=== PATIENT | male | born 1975 | race Two or more races ===

== ENCOUNTER 2016-10-05 18:42 | Emergency (ER) | payer BC ==
[2016-10-05 18:57] VITALS: BP 136/90; PULSE 86; TEMP 98.1; BMI 25.0
--- NOTE | 2016-10-05 19:21 | PDOC ---
History of Present Illness - General Chief Complaint: Sore Throat Stated Complaint: SORE THROAT Time Seen by Provider: 10/05/16 19:19 History Source: Patient Exam Limitations: No Limitations - History of Present Illness Initial Comments: 10/05/16 20:02 This is a 41-year-old male who comes in complaining of several weeks of discomfort in his throat. Patient describes the discomfort as a sensation that his throat is very dry. Patient says is worse in the morning. Patient denies any fevers or chills. Patient said that he has been told he has a chronic red throat by his primary care doctor. Patient said that over the last couple a days his throat now is more uncomfortable than usual. Patient denies any fevers or chills. Patient denies any discomfort with swallowing. Patient said it feels like there is something in his throat and he keeps having to clear his throat. Patient does not take any medications specifically no ÁLVARO inhibitor's. Patient denies any shortness of breath, cough, congestion. Patient denies any sinus changes pain. Patient says he does have some mild discharge occasionally in the morning that is clear. PAST MEDICAL HISTORY: no significant history PAST SURGICAL HISTORY: no significant history FAMILY HISTORY: no pertinant history SOCIAL HISTORY: Pt lives with family and is employed. MEDICATIONS: reviewed ALLERGIES: As per nursing notes Review of Systems General: No fevers or chills, no weakness, no weight loss HEENT: No change in vision. No sore throat,. No ear pain CardioVascular: No chest pain or shortness of breath Respiratory:No cough, or wheezing. Gastrointestinal: no nausea, vomitting, diarrhea or constipation, No rectal bleeding Genitourinary: No dysuria, hematuria, or frequency Musculoskeletal: No joint or muscle pain or swelling Neurologic: No headache, vertigo, dizziness or loss of consciousness Psychiatric: nor depression Skin: No rashes or easy bruising Endocrine: no increased thirst or abnormal weight change Allergic: no skin or latex allergy All other systems reviewed and normal Exam: General: Well-nourished well-developed individual, no acute distress HEENT: Throat: There is some mild to moderate erythema of the posterior oropharynx., Tonsils are not enlarged, there is no exudate. Neck: Supple, no meningeal signs, no lymphadenopathy Eyes::Pupils equal reactive and round, extraocular motion intact Chest: Nontender to palpation Cardiac: S1-S2 normal, regular rate and rhythm, no murmurs rubs or gallops Respiratory: Lungs clear to auscultation bilateral Extremities: Warm, dry, no cyanosis, clubbing, or edema Skin: No rashes Neuro: Alert and oriented x3, nonfocal exam, grossly intact, normal gait Psych: Normal mood and affect Assessment and plan: This is a 41-year-old male who comes in complaining of a dry throat with some discomfort of his throat. Patient does have some mild erythema of the posterior oropharynx however no exudate or lymphadenopathy. Patient has no fevers. Patient reassured that his symptoms most likely are secondary to the dry air experienced in Winter as well as a possible superimposed mild viral pharyngitis. Patient was told that he can take Tylenol or Motrin as needed for the discomfort. That he should get a humidifier and use it in his room at night as he is a mouth breather and follow-up with his doctor if not improved in one week. Past History - Past Medical History Allergies/Adverse Reactions: Allergies Allergy/AdvReac Type Severity Reaction Status Date / Time No Known Allergies Allergy Verified 10/05/16 18:47 Home Medications: Ambulatory Orders NK [No Known Home Medication] 10/05/16 Disorders: Yes (renal stones) - Psycho/Social/Smoking Cessation Hx Anxiety: No Suicidal Ideation: No Smoking Status: No Smoking History: Never smoked Have you smoked in the past 12 months: No Number of Cigarettes Smoked Daily: 0 Information on smoking cessation initiated: No Hx Alcohol Use: No Drug/Substance Use Hx: No Substance Use Type: None *Physical Exam - Vital Signs Last Vital Signs Temp Pulse Resp BP Pulse Ox 98.1 F 86 18 136/90 100 10/05/16 18:48 10/05/16 18:48 10/05/16 18:48 10/05/16 18:48 10/05/16 18:48 *DC/Admit/Observation/Transfer Diagnosis at time of Disposition: Acute viral pharyngitis - Discharge Dispostion Disposition: HOME Condition at time of disposition: Good Admit: No - Patient Instructions Printed Discharge Instructions: DI for Viral Pharyngitis Additional Instructions: Use a cool mist humidifier in your room make sure it is on your side of the bed at nighttime when you're sleeping. During the daytime stay well hydrated drink plenty of fluids 6-8 glasses of water a day. Tylenol or Motrin as needed for pain. Return to the emergency department immediately with ANY new, persistent or worsening symptoms. Continue any medications as previously prescribed by your physician. You should follow up with your primary doctor as soon as possible regarding today's emergency department visit. . Please make sure your doctor reviews the results of your emergency evaluation. Thank you for coming to the Emergency Department today for your care. It was a pleasure to see you today. Please note that your evaluation is INCOMPLETE until you follow-up with your doctor.
== END 2016-10-05 19:25 | disposition home or self-care (01) ==
LOC: FER 18:42
DX: J02.8 Acute pharyngitis due to other specified organisms (principal); B97.89 Other viral agents as the cause of diseases classified elsewhere
CPT/HCPCS: 99281-25

== ENCOUNTER 2016-12-06 05:19 | Emergency (ER) | payer BC ==
--- NOTE | 2016-12-06 05:51 | PDOC ---
History of Present Illness - General History Source: Patient Exam Limitations: No Limitations - History of Present Illness Initial Comments: 12/06/16 06:14 The patient is a 41 year old male with no significant past medical history who presents to the ED with 3 days of generalized weakness, nausea, and constipation. Also reports noting a 5lb weight loss within the past month. Visited PMD in [place] where he prescribed escitalopram and was told to come into the ER if symptoms worsened. The patient denies fever, chills, cough, SOB, and chest pain. The patient denies abdominal pain, vomiting, and diarrhea. Allergies: NKDA Social History: No alcohol, tobacco, or drug use reported. Past Surgical History: None reported PCP: Dr. Tere Ontiveros <Theresa Barrera - Last Filed: 12/06/16 06:14> - General History Source: Patient <YefriYannick jenkins - Last Filed: 12/06/16 19:14> - General Stated Complaint: WEAKNESS Time Seen by Provider: 12/06/16 05:50 Past History <Theresa Barrera - Last Filed: 12/06/16 06:14> - Past Medical History Disorders: Yes (renal stones) - Psycho/Social/Smoking Cessation Hx Anxiety: No Suicidal Ideation: No Smoking Status: No Smoking History: Never smoked Have you smoked in the past 12 months: No Number of Cigarettes Smoked Daily: 0 Hx Alcohol Use: No Drug/Substance Use Hx: No Substance Use Type: None <Yannick Merchant - Last Filed: 12/06/16 19:14> - Past Medical History Allergies/Adverse Reactions: Allergies Allergy/AdvReac Type Severity Reaction Status Date / Time No Known Allergies Allergy Verified 12/06/16 06:00 Home Medications: Ambulatory Orders Escitalopram Oxalate [Lexapro -] 10 mg PO DAILY 12/06/16 Review of Systems - Review of Systems Able to Perform ROS?: Yes Comments:: 12/06/16 06:14 CONSTITUTIONAL: +generalized weakness Absent: fever, no chills, no fatigue EYES: Absent: visual changes ENT: Absent: ear pain, no sore throat CARDIOVASCULAR: Absent: chest pain, no palpitations RESPIRATORY: Absent: cough, no SOB GI: +nausea, constipation Absent: abdominal pain, no vomiting, no diarrhea GENITOURINARY: Absent: dysuria, no frequency, no hematuria MUCKULOSKELETAL: Absent: back pain, no arthralgia, no myalgia ENDOCRINE: +5lb weight loss in 1 month SKIN: Absent: rash NEURO: Absent: headache <Theresa Barrera - Last Filed: 12/06/16 06:14> *Physical Exam - Vital Signs Last Vital Signs Temp Pulse Resp BP Pulse Ox 98 F 76 18 132/90 100 12/06/16 05:58 12/06/16 05:58 12/06/16 05:58 12/06/16 05:58 12/06/16 05:58 - Physical Exam Comments: 12/06/16 06:15 GENERAL: Well-appearing, well-nourished. No apparent distress. HEENT: Normocephalic, atraumatic. PERRL, EOM intact. CARDIOVASCULAR: Normal S1, S2. Regular rate and rhythm. PULMONARY: Clear to auscultation bilaterally. ABDOMEN: Soft, non-distended, non-tender. EXTREMITIES: Normal ROM in all four extremities. No gross deformities. SKIN: Warm, dry. No rash NEUROLOGICAL: No focal neurological deficits. <Theresa Barrera - Last Filed: 12/06/16 06:14> ED Treatment Course - LABORATORY CBC & Chemistry Diagram: 12/06/16 07:32 12/06/16 07:32 <Yannick Merchant - Last Filed: 12/06/16 19:14> *DC/Admit/Observation/Transfer - Attestations Scribe Attestion: 12/06/16 06:15 Documentation prepared by Theresa Barrera, acting as medical insurance collector for Yannick Merchant MD <Theresa Barrera - Last Filed: 12/06/16 06:14> - Discharge Dispostion Admit: No <Yannick Merchant - Last Filed: 12/06/16 19:14> Diagnosis at time of Disposition: Malaise - Discharge Dispostion Disposition: HOME Condition at time of disposition: Stable - Referrals Referrals: Jazlyn Ontiveros MD [Primary Care Provider] - - Patient Instructions Printed Discharge Instructions: DI for Fatigue Additional Instructions: Return to the emergency department immediately with ANY new, persistent or worsening symptoms. You MUST call and follow up with your doctor tomorrow for further evaluation of your symptoms. Results were discussed with you. Please make sure your doctor reviews the results of your emergency evaluation. If you had any xrays during your visit, it was read preliminarily by myself, a Radiologist will review it and if there are any additional findings we will call you. Print Language: SERBIAN
[2016-12-06 06:00] VITALS: TEMP 98; BMI 23.8
[2016-12-06] MEDS ORDERED: SODIUM CHLORIDE 1,000 ML IV STA (06:14)
[2016-12-06] MEDS ORDERED: ONDANSETRON 4 MG/2 ML VIAL IVPUSH STA (06:14)
--- NOTE | 2016-12-06 07:09 | PDOC ---
*Physical Exam - Vital Signs Last Vital Signs Temp Pulse Resp BP Pulse Ox 98 F 76 18 132/90 100 12/06/16 05:58 12/06/16 05:58 12/06/16 05:58 12/06/16 05:58 12/06/16 05:58 Heart Score/ECG Review - ECG Impressions Comment:: 12/06/16 11:16 Twelve-lead EKG was performed and reviewed by me. There is normal sinus rhythm with a normal rate. Rate of 72 The axis is normal. The intervals are normal. There is normal R wave progression There are no ST or T wave abnormalities. Impression: Normal twelve-lead EKG ED Treatment Course - LABORATORY CBC & Chemistry Diagram: 12/06/16 07:32 12/06/16 07:32 Medical Decision Making - Medical Decision Making 12/06/16 09:08 The ptient was signed out to me from Dr. Viera The patient is a 41yM presenting with general weakness, constipation, malaise for th epast several days since starting lexapro from his PMD. Pts exam unremarkable. labs unremarkable pt still feeling generally weak.. suspect possible depression? but will hav the pt fu with his PMD tomorrow for reevaluation. reutnr precautions were discusesd I discussed the physical exam findings, ancillary test results and final diagnoses with the patient. I answered all of the patient's questions. The patient was satisfied with the care received and felt comfortable with the discharge plan and treatment plan. The patient will call their primary care physician within 24 hours to arrange follow-up and will return to the Emergency Department with any new, persistent or worsening symptoms. *DC/Admit/Observation/Transfer Diagnosis at time of Disposition: Malaise - Discharge Dispostion Disposition: HOME Condition at time of disposition: Stable Admit: No - Referrals Referrals: Jazlyn Ontiveros MD [Primary Care Provider] - - Patient Instructions Printed Discharge Instructions: DI for Fatigue Additional Instructions: Return to the emergency department immediately with ANY new, persistent or worsening symptoms. You MUST call and follow up with your doctor tomorrow for further evaluation of your symptoms. Results were discussed with you. Please make sure your doctor reviews the results of your emergency evaluation. If you had any xrays during your visit, it was read preliminarily by myself, a Radiologist will review it and if there are any additional findings we will call you. Print Language: SLOVAK - Post Discharge Activity
[2016-12-06] MEDS ORDERED: ONDANSETRON 4 MG/2 ML VIAL ONE (07:18)
[2016-12-06 08:00] LABS: BASOPHIL 0.5 % (0-2.0); EOSINOPHIL 1.1 % (0-4.5); MCH 34.2 pg (25.7-33.7); MCHC 34.3 g/dl (32.0-35.9); MEAN PLT VOLUME 8.3 fl (7.5-11.1); NEUTROPHILS 73.4 % (42.8-82.8); PLATELET COUNT 266 K/MM3 (134-434); RDW 12.8 % (11.9-15.9); WHITE BLOOD COUNT 7.8 K/mm3 (4.0-10.0)
[2016-12-06 08:34] LABS: ANION GAP 9 (8-16); CALCIUM 9.1 mg/dL (8.5-10.1); CO2 30 mmol/L (21-32); GLUCOSE,RANDOM 95 mg/dL (74-106)
[2016-12-06 08:38] LABS: ALK PHOS 58 U/L (45-117); BILIRUBIN,TOTAL 0.7 mg/dL (0.2-1.0); CREATININE 0.8 mg/dL (0.7-1.3); SGOT/AST 21 U/L (15-37); SGPT/ALT 32 U/L (12-78); TOT PROT 6.9 g/dl (6.4-8.2)
[2016-12-06 08:43] LABS: C-REACTIVE PROTEIN < 0.3 MG/DL (0.00-0.3); MAGNESIUM 2.2 mg/dL (1.8-2.4)
[2016-12-06] MEDS ORDERED: FAMOTIDINE 20 MG/50 ML IVPB 20 MG in PREMIX 50 IVPB ONE (09:09)
[2016-12-06] MEDS ORDERED: MAG HYDROX/AL HYDROX/SIMETH 355 ML ORAL.SUSP PO ONE (09:09)
[2016-12-06] MEDS ORDERED: MAG HYDROX/AL HYDROX/SIMETH 30 ML UNIT-DOSE CUP ONE (09:10)
[2016-12-06] MEDS ORDERED: FAMOTIDINE 20 MG/50 ML IVPB 50 ML IVPB ONE (09:11)
[2016-12-06 09:24] LABS: URINE APPEARANCE CLEAR; URINE BILIRUBIN NEGATIVE (NEGATIVE); URINE BLOOD NEGATIVE (NEGATIVE); URINE COLOR COLORLESS; URINE GLUCOSE (UA) NEGATIVE (NEGATIVE); URINE KETONE NEGATIVE (NEGATIVE); URINE LEUK ESTERASE NEGATIVE (NEGATIVE); URINE NITRITE NEGATIVE (NEGATIVE); URINE PROTEIN NEGATIVE (NEGATIVE); URINE UROBILINOGEN NEGATIVE E.U./dl (0.2-1.0)
[2016-12-06 11:40] VITALS: BP 128/85; PULSE 79
--- NOTE | 2016-12-06 12:22 | EKG ---
Test Reason : Blood Pressure : / mmHG Vent. Rate : 072 BPM Atrial Rate : 072 BPM P-R Int : 156 ms QRS Dur : 098 ms QT Int : 386 ms P-R-T Axes : 069 039 038 degrees QTc Int : 422 ms POOR DATA QUALITY, INTERPRETATION MAY BE ADVERSELY AFFECTED NORMAL SINUS RHYTHM NORMAL ECG NO PREVIOUS ECGS AVAILABLE Confirmed by ALINE GRAMAJO MD ([id number]) on 12/06/2016 12:21:50 PM Referred By: Confirmed By:ALINE GRAMAJO MD
== END 2016-12-06 11:39 | disposition home or self-care (01) ==
LOC: JER 05:19
PROC: 3E033GC Introduction of Other Therapeutic Substance into Peripheral Vein, Percutaneous Approach (ICD-10-PCS; principal; 2016-12-06)
DX: R53.81 Other malaise (principal); R63.4 Abnormal weight loss; Z68.23 Body mass index [BMI] 23.0-23.9, adult
CPT/HCPCS: 36415; 80053; 81003; 83735; 85025; 85651; 86140; 93005; 93010; 99285-25

== ENCOUNTER 2016-12-12 10:12 | Emergency (ER) | payer BC ==
[2016-12-12 10:19] VITALS: TEMP 98; BMI 22.6
[2016-12-12] MEDS ORDERED: FAMOTIDINE 20 MG/50 ML IVPB 50 ML IVPB ONE ×2 (12:04→14:04)
--- NOTE | 2016-12-12 12:08 | PDOC ---
History of Present Illness - General Chief Complaint: Pain Stated Complaint: ABD PAIN, VOMITING Time Seen by Provider: 12/12/16 11:58 History Source: Patient Exam Limitations: No Limitations - History of Present Illness Travel History: No Initial Comments: 12/12/16 12:04 41 yr male with c/o weakness, abd pain , heartburn and feeling tired for a few weeks. Pt seen here 2 weeks ago for same. Pt currently taking Lexapro for depression started 2 weeks ago, states it is not helping. Pt is not suicidal. Pt c/o dark colored stool, no active bleeding, c/o constipation. Pt denies any medical history. Pt also with sores to lower lip and right nare started last week. Past History - Past Medical History Allergies/Adverse Reactions: Allergies Allergy/AdvReac Type Severity Reaction Status Date / Time No Known Allergies Allergy Verified 12/12/16 10:19 Home Medications: Ambulatory Orders Escitalopram Oxalate [Lexapro -] 10 mg PO DAILY 12/06/16 Omeprazole 40 mg PO DAILY #30 capsule. 12/12/16 GI Disorders: Yes (GALLSTONES) Disorders: Yes (renal stones) - Immunization History Immunization Up to Date: Yes - Psycho/Social/Smoking Cessation Hx Anxiety: No Suicidal Ideation: No Smoking Status: No Smoking History: Never smoked Have you smoked in the past 12 months: No Number of Cigarettes Smoked Daily: 0 Hx Alcohol Use: No Drug/Substance Use Hx: No Substance Use Type: None *Physical Exam - Vital Signs Last Vital Signs Temp Pulse Resp BP Pulse Ox 98.0 F 91 H 20 122/56 97 12/12/16 10:17 12/12/16 10:17 12/12/16 10:17 12/12/16 10:12/12/16 10:17 - Physical Exam General Appearance: Yes: Nourished, Appropriately Dressed HEENT: positive: EOMI, GÓMEZ, Normal ENT Inspection, TMs Normal, Pharynx Normal. negative: TM Erythema Neck: positive: Supple. negative: Tender Respiratory/Chest: positive: Lungs Clear, Normal Breath Sounds. negative: Chest Tender Cardiovascular: positive: Regular Rhythm, Regular Rate Gastrointestinal/Abdominal: positive: Normal Bowel Sounds, Tender, Soft, Tenderness (epigastric). negative: Guarding, Rebound Male Genitalia: positive: normal genitalia Rectal Exam: positive: heme negative stool, normal exam, normal rectal tone. negative: melena, decreased tone Lymphatic: negative: Adenopathy Musculoskeletal: positive: Normal Inspection, Other Extremity: positive: Normal Capillary Refill, Normal Inspection, Normal Range of Motion. negative: Tender Integumentary: positive: Normal Color, Dry, Warm Neurologic: positive: orthotist prosthetist II-XII NML intact, Fully Oriented, Alert, Normal Mood/ Affect, Normal Response, Motor Strength 01/11 ED Treatment Course - LABORATORY CBC & Chemistry Diagram: 12/12/16 13:49 12/12/16 13:49 Medical Decision Making - Medical Decision Making 12/12/16 15:34 cc: abd pain comes and goes, vomiting on and off with dark colored stools no rectal bleeding no vomiting blood pt denies dizzyness or shortness of breath will check labs, Ct abdomen 12/12/16 15:54 labs reviewed , cat scan done pt stable feels better will dc home pt states he has an apt on 12/28 to have endoscopy. 12/12/16 15:59 *DC/Admit/Observation/Transfer Diagnosis at time of Disposition: Gastritis Qualifiers: Gastritis type: other gastritis Chronicity: acute Gastritis bleeding: without bleeding Qualified Code(s): K29.00 - Acute gastritis without bleeding - Discharge Dispostion Disposition: HOME Condition at time of disposition: Improved - Prescriptions Prescriptions: Omeprazole 40 mg PO DAILY #30 capsule.dr - Referrals Referrals: Diego Gruber MD [Staff Physician] - - Patient Instructions Additional Instructions: bland diet pleanty of clear liquids high fiber diet avoid alcohol, chocoalte , red meat follow with the gastroenterolgist as planned or with Dr. Gruber please bring copies of your tests done today with you for follow up take the medication as prescribed return if any worsening symptoms
[2016-12-12] MEDS ORDERED: METOCLOPRAMIDE HCL INJECTION 10 MG/2 ML VIAL IVPB ONE (13:02)
[2016-12-12] MEDS ORDERED: SODIUM CHLORIDE 1,000 ML IV STA (13:05)
[2016-12-12 13:57] LABS: BASOPHIL 0.7 % (0-2.0); EOSINOPHIL 0.2 % (0-4.5); NEUTROPHILS 71.3 % (42.8-82.8); PLATELET COUNT 292 K/MM3 (134-434); RDW 12.7 % (11.9-15.9); WHITE BLOOD COUNT 7.5 K/mm3 (4.0-10.0)
[2016-12-12] MEDS ORDERED: METOCLOPRAMIDE HCL INJECTION 10 MG/2 ML VIAL ONE (14:03)
[2016-12-12 14:04] LABS: URINE APPEARANCE CLOUDY; URINE BILIRUBIN NEGATIVE (NEGATIVE); URINE BLOOD NEGATIVE (NEGATIVE); URINE COLOR YELLOW; URINE GLUCOSE (UA) NEGATIVE (NEGATIVE); URINE KETONE NEGATIVE (NEGATIVE); URINE LEUK ESTERASE NEGATIVE (NEGATIVE); URINE NITRITE NEGATIVE (NEGATIVE); URINE PROTEIN NEGATIVE (NEGATIVE); URINE UROBILINOGEN NEGATIVE E.U./dl (0.2-1.0)
[2016-12-12 14:34] LABS: ALBUMIN 4.3 g/dl (3.4-5.0); ANION GAP 11 (8-16); CALCIUM 9.6 mg/dL (8.5-10.1); CO2 30 mmol/L (21-32); CREATININE 0.8 mg/dL (0.7-1.3); GLUCOSE,RANDOM 102 mg/dL (74-106); SGOT/AST 28 U/L (15-37); SGPT/ALT 31 U/L (12-78)
[2016-12-12 14:35] LABS: ALK PHOS 61 U/L (45-117); BILIRUBIN,TOTAL 0.8 mg/dL (0.2-1.0); TOT PROT 7.8 g/dl (6.4-8.2)
[2016-12-12 15:09] LABS: HIV 1 & 2 AB NEGATIVE; HIV 1 AGp24 NEGATIVE
[2016-12-12 16:33] VITALS: BP 126/69; PULSE 78
== END 2016-12-12 16:26 | disposition home or self-care (01) ==
LOC: JER 10:12
PROC: 3E033GC Introduction of Other Therapeutic Substance into Peripheral Vein, Percutaneous Approach (ICD-10-PCS; principal; 2016-12-12)
PROC: 3E0337Z Introduction of Electrolytic and Water Balance Substance into Peripheral Vein, Percutaneous Approach (ICD-10-PCS; 2016-12-12)
DX: K29.00 Acute gastritis without bleeding (principal); F32.9 Major depressive disorder, single episode, unspecified
CPT/HCPCS: 36415; 74176-TC; 80053; 81003; 82272; 85025; 86593; 87070; 87389; 87430; 87804; 99283-25

== ENCOUNTER 2017-06-22 19:19 | Emergency (ER) | payer BC, OTHER ==
[2017-06-22 19:25] VITALS: BP 137/87; PULSE 90; TEMP 98.2; BMI 25.8
--- NOTE | 2017-06-22 20:11 | PDOC ---
History of Present Illness - General Chief Complaint: Injury Stated Complaint: FINGER INJURY Time Seen by Provider: 06/22/17 19:54 History Source: Patient Exam Limitations: No Limitations - History of Present Illness Initial Comments: 06/22/17 20:07 41 yr male with injury to left middle finger yesterday dropped an air conditioner on middle digit now has swelling to the tip. no medical history. Occurred: reports: yesterday Upper Extremity Pain Location: left: 3rd finger Method of Injury: reports: other (air conditioner fell on the finger crushed the finger) Past History - Past Medical History Allergies/Adverse Reactions: Allergies Allergy/AdvReac Type Severity Reaction Status Date / Time No Known Allergies Allergy Verified 12/12/16 10:19 Home Medications: Ambulatory Orders NK [No Known Home Medication] 06/22/17 GI Disorders: Yes (GALLSTONES) Disorders: Yes (renal stones) - Immunization History Immunization Up to Date: Yes - Suicide/Smoking/Psychosocial Hx Smoking Status: No Smoking History: Never smoked Have you smoked in the past 12 months: No Number of Cigarettes Smoked Daily: 0 Information on smoking cessation initiated: No Hx Alcohol Use: No Drug/Substance Use Hx: No Substance Use Type: None Review of Systems - Review of Systems Able to Perform ROS?: Yes Is the patient limited Ivorian proficient: No Constitutional: No: Symptoms Reported HEENTM: No: Symptoms Reported Respiratory: No: Symptoms reported Cardiac (ROS): No: Symptoms Reported ABD/GI: No: Symptoms Reported : No: Symptoms Reported Musculoskeletal: Yes: See HPI *Physical Exam - Vital Signs Last Vital Signs Temp Pulse Resp BP Pulse Ox 98.2 F 90 18 137/87 97 06/22/17 19:23 06/22/17 19:23 06/22/17 19:23 06/22/17 19:23 06/22/17 19:23 - Physical Exam General Appearance: Yes: Nourished, Appropriately Dressed HEENT: positive: EOMI, GÓMEZ Neck: positive: Supple. negative: Tender Respiratory/Chest: positive: Lungs Clear. negative: Chest Tender Cardiovascular: positive: Regular Rhythm, Regular Rate Gastrointestinal/Abdominal: positive: Normal Bowel Sounds, Soft Musculoskeletal: positive: Normal Inspection Extremity: positive: Normal Capillary Refill, Normal Range of Motion, Swelling, Other (bruising to the tip of the finger palmar side ) Integumentary: positive: Normal Color, Dry, Warm Neurologic: positive: Fully Oriented, Alert, Normal Mood/Affect, Normal Response , Motor Strength 5/5 Procedures - Splinting Splint Location: Left: Finger (finger splint ) Post-Proc Neuro Vasc Exam: normal ED Treatment Course - RADIOLOGY Radiology Studies Ordered: Category Date Time Status FINGER(S) LEFT [RAD] Stat Radiology 06/22/17 19:55 Ordered Medical Decision Making - Medical Decision Making 06/22/17 20:10 cc: crush injury to the finger will xray to r.o fracture pt took motrin yesterday feels better 06/22/17 20:47 06/22/17 20:55 xray positive for tuft fracture finger placed in splint and taped dc inst discussed verbally all questions asked and answered *DC/Admit/Observation/Transfer Diagnosis at time of Disposition: Finger fracture Qualifiers: Encounter type: initial encounter Finger: middle finger Fracture type: closed Phalanx: distal Fracture alignment: displaced Laterality: left Qualified Code(s) : S62.633A - Displaced fracture of distal phalanx of left middle finger, initial encounter for closed fracture - Discharge Dispostion Disposition: HOME Condition at time of disposition: Good - Referrals Referrals: North Ramey MD [Staff Physician] - Solitario Medrano MD [Staff Physician] - - Patient Instructions Additional Instructions: follow with next week call Saturday to make appointment or follow with keep the finger splinted at all times except to remove every 2hrs for 20 minutes to apply ice take motrin for pain (over the counter ibuprofen or advil)
== END 2017-06-22 20:58 | disposition home or self-care (01) ==
LOC: JERFT 19:19
PROC: 2W3KX1Z Immobilization of Left Finger using Splint (ICD-10-PCS; principal; 2017-06-22)
DX: S62.633A Displaced fracture of distal phalanx of left middle finger, initial encounter for closed fracture (principal); W22.8XXA Striking against or struck by other objects, initial encounter; Y93.E9 Activity, other interior property and clothing maintenance; Y92.038 Other place in apartment as the place of occurrence of the external cause
CPT/HCPCS: 73140-TC-LT; 99281-25

== ENCOUNTER 2018-10-14 17:30 | Inpatient (IN) | payer BC, OTHER ==
--- NOTE | 2018-10-14 17:55 | PDOC ---
Rapid Medical Evaluation Time Seen by Provider: 10/14/18 17:52 Medical Evaluation: Allergies Allergy/AdvReac Type Severity Reaction Status Date / Time No Known Allergies Allergy Verified 12/12/16 10:19 10/14/18 17:52 Pt presents to the ED for RLQ pain for one day. Pt was seen at [facility] and told to come to the ED for further evaluation Exam: TTP of the RLQ Orders: Labs, Urine, IV Pt to proceed to the ED for further evaluation Discharge Disposition - Diagnosis Abdominal pain Qualifiers: Abdominal location: right lower quadrant Qualified Code(s): R10.31 - Right lower quadrant pain - Referrals - Patient Instructions - Post Discharge Activity
[2018-10-14 18:19] LABS: BASO % 0.6 % (0-2.0); EOS % 1.4 % (0-4.5); HEMATOCRIT 45.2 % (35.4-49); HEMOGLOBIN 15.7 GM/dL (11.7-16.9); LYMPH % 29.8 % (8-40); MCH 34.5 pg (25.7-33.7); MCHC 34.7 g/dl (32.0-35.9); MEAN CELL VOLUME 99.3 fl (80-96); MEAN PLT VOLUME 8.4 fl (7.5-11.1); MONO % 6.2 % (3.8-10.2); PLATELET COUNT 265 K/MM3 (134-434); RBC 4.55 M/mm3 (4.00-5.60); RDW 12.6 % (11.9-15.9); WHITE BLOOD COUNT 10.7 K/mm3 (4.0-10.0)
[2018-10-14 18:30] LABS: INR 1.03 (0.83-1.09); PROTHROMBIN TIME (PATIENT) 12.2 SEC (9.7-13.0)
[2018-10-14 18:41] LABS: ALBUMIN 4.3 g/dl (3.4-5.0); ALK PHOS 66 U/L (45-117); ANION GAP 7 MMOL/L (8-16); BILIRUBIN,TOTAL 0.7 mg/dL (0.2-1); BLOOD UREA NITROGEN 11 mg/dL (7-18); CALCIUM 9.1 mg/dL (8.5-10.1); CHLORIDE 101 mmol/L (98-107); CO2 30 mmol/L (21-32); CREATININE 0.9 mg/dL (0.55-1.3); GLUCOSE,RANDOM 83 mg/dL (74-106); POTASSIUM 4.1 mmol/L (3.5-5.1); SGOT/AST 31 U/L (15-37); SGPT/ALT 36 U/L (13-61); SODIUM 138 mmol/L (136-145); TOT PROT 7.7 g/dl (6.4-8.2)
[2018-10-14 19:13] LABS: URINE APPEARANCE CLEAR; URINE BILIRUBIN NEGATIVE (<2.0 mg/dL); URINE COLOR STRAW; URINE GLUCOSE (UA) NEGATIVE (NEGATIVE); URINE KETONE NEGATIVE (NEGATIVE); URINE LEUK ESTERASE NEGATIVE (NEGATIVE); URINE NITRITE NEGATIVE (NEGATIVE); URINE PROTEIN NEGATIVE (NEGATIVE); URINE UROBILINOGEN NEGATIVE mg/dL (0.2-1.0)
--- NOTE | 2018-10-14 19:19 | PDOC ---
*Physical Exam - Vital Signs Last Vital Signs Temp Pulse Resp BP Pulse Ox 98.2 F 102 H 16 128/81 99 10/14/18 17:53 10/14/18 17:53 10/14/18 17:53 10/14/18 17:53 10/14/18 17:53 ED Treatment Course - LABORATORY CBC & Chemistry Diagram: 10/14/18 18:08 10/14/18 18:08 - ADDITIONAL ORDERS Additional order review: Laboratory Results 10/14/18 10/14/18 18:08 18:08 PT with INR 12.20 INR 1.03 Sodium 138 Potassium 4.1 Chloride 101 Carbon Dioxide 30 Anion Gap 7 L BUN 11 Creatinine 0.9 Creat Clearance w eGFR > 60 Random Glucose 83 Calcium 9.1 Total Bilirubin 0.7 AST 31 ALT 36 Alkaline Phosphatase 66 Total Protein 7.7 Albumin 4.3 10/14/18 18:08 RBC 4.55 MCV 99.3 H MCHC 34.7 RDW 12.6 MPV 8.4 Neutrophils % 62.0 Lymphocytes % 29.8 D Monocytes % 6.2 Eosinophils % 1.4 D Basophils % 0.6 Medical Decision Making - Medical Decision Making 10/14/18 19:18 Patient seen by the advanced practice provider under my direct supervision. Ancillary testing reviewed as necessary. I agree with plan as outlined by the advanced practice provider. *DC/Admit/Observation/Transfer Diagnosis at time of Disposition: Abdominal pain Qualifiers: Abdominal location: right lower quadrant Qualified Code(s): R10.31 - Right lower quadrant pain - Referrals Referrals: Jazlyn Ontiveros MD [Primary Care Provider] - - Patient Instructions - Post Discharge Activity
--- NOTE | 2018-10-14 19:22 | PDOC ---
History of Present Illness - General Chief Complaint: Pain Stated Complaint: PAIN Time Seen by Provider: 10/14/18 17:52 History Source: Patient - History of Present Illness Initial Comments: 10/14/18 19:19 43 year old male with right upper quadrant and rlq pain x 1 days. denies NVD, constipation. denies fever/ chills, chest pain. sent by [facility] urgent care for evaluation PMHX: internal hemorrhoids. kidney cyst PMHX: Dr/ Weston Past History - Past Medical History Allergies/Adverse Reactions: Allergies Allergy/AdvReac Type Severity Reaction Status Date / Time No Known Allergies Allergy Verified 10/14/18 17:53 Home Medications: Ambulatory Orders NK [No Known Home Medication] 06/22/17 COPD: No GI Disorders: Yes (GALLSTONES) Disorders: Yes (renal stones) - Immunization History Immunization Up to Date: Yes - Suicide/Smoking/Psychosocial Hx Smoking Status: No Smoking History: Never smoked Have you smoked in the past 12 months: No Number of Cigarettes Smoked Daily: 0 Hx Alcohol Use: No Drug/Substance Use Hx: No Substance Use Type: None Review of Systems - Review of Systems Able to Perform ROS?: Yes Is the patient limited [place] proficient: No Constitutional: Yes: Loss of Appetite. No: Symptoms Reported, See HPI, Chills, Diaphoresis, Fever, Malaise, Night Sweats, Weakness, Weight Stable, Unintentional Wgt. Loss, Unexplained wgt Loss, Other Respiratory: No: Symptoms reported, See HPI, Cough, Orthopnea, Shortness of Breath, SOB with Exertion, SOB at Rest, Stridor, Wheezing, Productive cough, Hemoptysis, Other ABD/GI: Yes: Nausea, Abdominal cramping. No: Symptoms Reported, See HPI, Abdominal Distended, Abd. Pain w/ defecation, Blood Streaked Bowels, Constipated , Diarrhea, Difficulty Swallowing, Poor Appetite, Poor Fluid Intake, Rectal Bleeding, Vomiting, Indigestion, Tarry Stools, Other : No: Symptoms Reported, See HPI, Burning, Dysuria, Discharge, Frequency, Flank Pain, Hematuria, Incontinence, Pain, Urgency, Testicular Mass, Testicular Swelling, Lesions, Testicular Pain, Other Musculoskeletal: No: Symptoms Reported, See HPI, Back Pain, Gout, Joint Pain, Joint Swelling, Muscle Pain, Muscle Weakness, Neck Pain, Joint Stiffness, Other Integumentary: No: Symptoms Reported, See HPI, Bruising, Change in Color, Change in Hair/Nails, Dryness, Erythema, Flushing, Lesions, Lumps, Pallor, Pruritus, Rash, Sweating, Other *Physical Exam - Vital Signs Last Vital Signs Temp Pulse Resp BP Pulse Ox 98.2 F 102 H 16 128/81 99 10/14/18 17:53 10/14/18 17:53 10/14/18 17:53 10/14/18 17:53 10/14/18 17:53 - Physical Exam General Appearance: Yes: Appropriately Dressed Respiratory/Chest: positive: Lungs Clear, Normal Breath Sounds Cardiovascular: positive: Tachycardia Gastrointestinal/Abdominal: positive: Normal Bowel Sounds, Tender (RUQ/ RLQ), Soft Musculoskeletal: positive: Normal Inspection Extremity: positive: Normal Capillary Refill, Normal Inspection, Normal Range of Motion Integumentary: positive: Normal Color, Dry, Warm Neurologic: positive: Fully Oriented, Normal Mood/Affect Moderate Sedation - Procedure Monitoring Vital Signs: Procedure Monitoring Vital Signs Temperature 98.2 F 10/14/18 17:53 Pulse Rate 102 H 10/14/18 17:53 Respiratory Rate 16 10/14/18 17:53 Blood Pressure 128/81 10/14/18 17:53 O2 Sat by Pulse Oximetry (%) 99 10/14/18 17:53 ED Treatment Course - LABORATORY CBC & Chemistry Diagram: 10/14/18 18:08 10/14/18 18:08 - ADDITIONAL ORDERS Additional order review: Laboratory Results 10/14/18 10/14/18 18:08 18:08 PT with INR 12.20 INR 1.03 Sodium 138 Potassium 4.1 Chloride 101 Carbon Dioxide 30 Anion Gap 7 L BUN 11 Creatinine 0.9 Creat Clearance w eGFR > 60 Random Glucose 83 Calcium 9.1 Total Bilirubin 0.7 AST 31 ALT 36 Alkaline Phosphatase 66 Total Protein 7.7 Albumin 4.3 10/14/18 18:08 RBC 4.55 MCV 99.3 H MCHC 34.7 RDW 12.6 MPV 8.4 Neutrophils % 62.0 Lymphocytes % 29.8 D Monocytes % 6.2 Eosinophils % 1.4 D Basophils % 0.6 Medical Decision Making - Medical Decision Making 10/14/18 22:51 I had initially spoke to surgeon chicken boner Dr. grayson. recommended admission for surgery in the Am. patient later requested Dr. ingram to be contacted for any surgical issues. dr. barboza was called. recommended admission, npo surgery in the am. *DC/Admit/Observation/Transfer Diagnosis at time of Disposition: Abdominal pain Qualifiers: Abdominal location: right lower quadrant Qualified Code(s): R10.31 - Right lower quadrant pain - Discharge Dispostion Decision to Admit order: Yes - Referrals Referrals: Jazlyn Ontiveros MD [Primary Care Provider] - - Patient Instructions - Post Discharge Activity
[2018-10-14] MEDS ORDERED: PIPERACILLIN/TAZOB 3.375 GM 3.375 GM in DEXTROSE 5%-WATER - 50 ML IVPB ONE (21:58)
[2018-10-14] MEDS ORDERED: SODIUM CHLORIDE 0.9% 500 ML INFUS.BAG IV ONE (21:58)
[2018-10-14] MEDS ORDERED: SODIUM CHLORIDE 1,000 ML IV SCH (23:15)
--- NOTE | 2018-10-15 00:27 | PN ---
Teaching Attending Note Name of Resident: Ada Perales ATTENDING PHYSICIAN STATEMENT I saw and evaluated the patient. I reviewed the resident's note and discussed the case with the resident. I agree with the resident's findings and plan as documented. SUBJECTIVE: Patient is a 43 year old man PMH of right kidney cysts, internal hemorrhoids, gall stones and diet-treated hyperlipidemia who presents with RLQ abdominal pain x 1 days. Has nausea but denies vomiting, headache, dysuria, diarrhea, constipation, fever/ chills, chest pain or dizziness. Was sent by [facility] urgent care for evaluation OBJECTIVE: Alert Vital Signs Period Temp Pulse Resp BP Sys/Abreu Pulse Ox Last 24 Hr 98.2 F 102 16 128/81 99 HEENT: No Jaundice, eye redness or discharge, PERRLA, EOMI. Normocephalic, atraumatic. External ears are normal and hearing is grossly intact. No nasal discharge. Neck: Supple, nontender. No palpable adenopathy or thyromegaly. No JVD Chest: Good effort. Clear to auscultation and percussion. Heart: Regular. No S3, rub or murmur Abdomen: Not distended, soft, RLQ tenderness and no HSM. No rebound or guarding. Normoactive bowel sounds. Ext: Peripheral pulses intact. No leg edema. Skin: Warm and dry. No petechiae, rash or ecchymosis. Neuro: Alert. Oriented x3. CN 2-12 grossly intact. Sensation grossly intact in all four extremities and DTR are symmetric. Current Medications Generic Name Dose Route Start Last Admin Trade Name Freq PRN Reason Stop Dose Admin Sodium Chloride 1,000 mls @ 150 mls/hr 10/14/18 23:15 Normal Saline - IV ASDIR [facility] Home Medications Medication Instructions Recorded NK [No Known Home Medication] 06/22/17 Abnormal Lab Results 10/14/18 10/14/18 18:08 18:08 WBC 10.7 H MCV 99.3 H MCH 34.5 H Anion Gap 7 L ASSESSMENT AND PLAN: 1. Appendicitis - Confirmed by CT scan. For surgery tomorrow. Started on Zosyn, keeping him NPO and giving IV NS. Morphine for pain control. EKG pending. 2. DVT prophylaxis - SCD, TEDs. 3. Advance directives - Full code
[2018-10-15] MEDS ORDERED: ACETAMINOPHEN 325 MG TABLET (FP) PO PRN ×2 (00:28→11:24)
--- NOTE | 2018-10-15 00:44 | HP ---
CHIEF COMPLAINT: RUQ, RLQ pain x 2 days PCP: Dr. Ontiveros HISTORY OF PRESENT ILLNESS: 43 y/o M with PMH internal hemorrhoids, known R renal cyst, HLD, who presents to the ED c/o abdominal pain over the past two days. As per pt, his pain started in his RUQ two days ago and was 10/10, intermittent, and not a/w food. With radiation to R flank. Yesterday, his RUQ pain spread to the RLQ- 10/10, intermittent, cramping pain, without radiation. He was still able to attend work (in construction), and when the patient returned home, he took two advil with mild alleviation. However yesterday afternoon, his pain worsened, and he went to urgent care for further evaluation. While there, he was found to have a WBC count of 12k, and blood seen in his UA, thus he was told to come to the [facility] ED. During this time, pt endorses nausea (without emesis), mild abdominal distension, and decreased appetite. Denies WHITE, fever, chills, SOB, chest pain or pressure, or changes in urinary or bowel function. 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 Moved from [facility] - 16 yrs ago Smoking: denies Alcohol: socially Drugs: denies Family History: one of daughters has asthma Allergies No Known Allergies Allergy (Verified 10/14/18 17:53) HOME MEDICATIONS: Home Medications Medication Instructions Recorded NK [No Known Home Medication] 06/22/17 confirmed with patient verbally REVIEW OF SYSTEMS CONSTITUTIONAL: Absent: fever, chills, diaphoresis, generalized weakness, malaise, loss of appetite, weight change HEENT: Absent: rhinorrhea, nasal congestion, throat pain, throat swelling, difficulty swallowing, mouth swelling, ear pain, eye pain, visual changes CARDIOVASCULAR: Absent: chest pain, syncope, palpitations, irregular heart rate, lightheadedness , peripheral edema RESPIRATORY: Absent: cough, shortness of breath, dyspnea with exertion, orthopnea, wheezing, stridor, hemoptysis GASTROINTESTINAL: +abdominal pain, nausea Absent: abdominal pain, abdominal distension, nausea, vomiting, diarrhea, constipation, melena, hematochezia GENITOURINARY: Absent: dysuria, frequency, urgency, hesitancy, hematuria, flank pain, genital pain MUSCULOSKELETAL: Absent: myalgia, arthralgia, joint swelling, back pain, neck pain SKIN: Absent: rash, itching, pallor HEMATOLOGIC/IMMUNOLOGIC: Absent: easy bleeding, easy bruising, lymphadenopathy, frequent infections ENDOCRINE: Absent: unexplained weight gain, unexplained weight loss, heat intolerance, cold intolerance NEUROLOGIC: Absent: headache, focal weakness or paresthesias, dizziness, unsteady gait, seizure, mental status changes, bladder or bowel incontinence PSYCHIATRIC: Absent: anxiety, depression, suicidal or homicidal ideation, hallucinations. PHYSICAL EXAMINATION Vital Signs - 24 hr 10/14/18 17:53 Temperature 98.2 F Pulse Rate 102 H Respiratory 16 Rate Blood Pressure 128/81 O2 Sat by Pulse 99 Oximetry (%) GENERAL: Pleasant. Awake, alert, and fully oriented, in no acute distress. HEAD: Normal with no signs of trauma. EYES: Pupils equal, round and reactive to light, extraocular movements intact, sclera anicteric, conjunctiva clear. EARS, NOSE, THROAT: Ears normal, nares patent, oropharynx clear without exudates. Moist mucous membranes. NECK: Normal range of motion, supple. LUNGS: Breath sounds equal, clear to auscultation bilaterally. No wheezes, and no crackles. HEART: Regular rate and rhythm, normal S1 and S2 without murmur, rub or gallop. ABDOMEN: normoactive bowel sounds. (-) lehman's. +RLQ TTP. (-) rovsing, obturator, psoas LOWER EXTREMITIES: 2+ pt pulses, warm, well-perfused. No calf tenderness. No peripheral edema. NEUROLOGICAL: Cranial nerves II-XII intact. 5/5 motor strength UE, LE. sensation intact. PSYCHIATRIC: Cooperative. Good eye contact. SKIN: Warm, dry, normal turgor Laboratory Results 10/14/18 10/14/18 10/14/18 18:08 18:08 18:16 WBC 10.7 H Hgb 15.7 Hct 45.2 Plt Count 265 Sodium 138 Potassium 4.1 Chloride 101 Carbon Dioxide 30 BUN 11 Creatinine 0.9 Urine Color Straw Urine Appearance Clear Urine pH 8.0 Ur Specific [place] 1.011 Urine Protein Negative Urine Glucose (UA) Negative Urine Ketones Negative Urine Blood Negative Urine Nitrite Negative Urine Bilirubin Negative Urine Urobilinogen Negative Ur Leukocyte Esterase Negative EKG: ordered, pending RUQ sono: no cholelithiasis, or cholecystitis. stable 3mm GB polyp. CTAP: acute appendicitis; no abscess or phlegmon. also with 7.9cm renal cortical cyst. incidental small L renal cortical cyst. moderate colonic fecal retention ASSESSMENT/PLAN: 43 y/o M with PMH internal hemorrhoids, R kidney cyst, HLD, who presents to the ED c/o abdominal pain over the past two days. #Acute appendicitis, uncomplicated -without phlegmon or abscess. currently afebrile, with mild white count -Sx consult: Dr. Simon. was contacted by ED. for OR tomorrow -NPO -will cont zosyn 3.375g IVPB q8h for gram (-), anaerobe coverage -Tylenol PRN for pain control. can use morphine if needed. currently not requiring -PT/PTT, coags, type and screen -f/u EKG for pre-op cardio clearance -IVF NS 100 cc/hr #HLD -will send lipid panel to assess -as per pt, not on meds. has been tx with diet, exercise #hx 7.9 R renal cortical cyst -also w recent incidental L renal cortical cyst seen on CTAP -monitored yearly. has been told has not changed size -no need for intervention at this time #hx 3mm GB polyp -needs to have elective sx; can assess outpt #F/E/N IV NS 100 cc/hr continue to follow lytes NPO #PPX DVT: SCD's, RUTHIE's #Dispo admit to med-surg for surgery in AM. please call to notify time of surgery when find out Visit type - Emergency Visit Emergency Visit: Yes ED Registration Date: 10/14/18 Care time: The patient presented to the Emergency Department on the above date and was hospitalized for further evaluation of their emergent condition. - New Patient This patient is new to me today: Yes Date on this admission: 10/15/18 - Critical Care Critical Care patient: No
[2018-10-15] MEDS ORDERED: SODIUM CHLORIDE 1,000 ML IV SCH (01:01)
[2018-10-15 03:29] LABS: CHOLESTEROL 196 mg/dL (50-200); HDL CHOLESTEROL 47 mg/dL (40-60); TRIGLYCERIDES 67 mg/dL (0-150)
[2018-10-15 05:52] VITALS: BMI 26.0
[2018-10-15] MEDS ORDERED: PIPERACILLIN/TAZOB 3.375 GM 3.375 GM in DEXTROSE 5%-WATER - 50 ML IVPB SCH ×2 (06:00→18:00)
[2018-10-15] MEDS ORDERED: DEXTROSE 5%-WATER - 50 ML IVPB ONE ×2 (06:43→15:15)
[2018-10-15] MEDS ORDERED: PIPERACILLIN/TAZOBACTAM 3.375 GM VIAL IVPB ONE ×2 (06:43→15:14)
[2018-10-15 07:38] LABS: BASO % 0.5 % (0-2.0); EOS % 1.6 % (0-4.5); HEMATOCRIT 40.1 % (35.4-49); HEMOGLOBIN 14.4 GM/dL (11.7-16.9); LYMPH % 29.8 % (8-40); MCH 34.8 pg (25.7-33.7); MCHC 35.9 g/dl (32.0-35.9); MEAN CELL VOLUME 97.1 fl (80-96); MEAN PLT VOLUME 8.5 fl (7.5-11.1); MONO % 8.1 % (3.8-10.2); PLATELET COUNT 253 K/MM3 (134-434); RBC 4.13 M/mm3 (4.00-5.60); RDW 12.4 % (11.9-15.9); WHITE BLOOD COUNT 7.8 K/mm3 (4.0-10.0)
[2018-10-15 08:26] LABS: ALBUMIN 3.5 g/dl (3.4-5.0); ALK PHOS 52 U/L (45-117); ANION GAP 7 MMOL/L (8-16); BLOOD UREA NITROGEN 9 mg/dL (7-18); CALCIUM 8.4 mg/dL (8.5-10.1); CHLORIDE 106 mmol/L (98-107); CO2 27 mmol/L (21-32); CREATININE 0.9 mg/dL (0.55-1.3); GLUCOSE,RANDOM 80 mg/dL (74-106); PHOSPHOROUS 3.3 mg/dL (2.5-4.9); SGOT/AST 22 U/L (15-37); SGPT/ALT 28 U/L (13-61); SODIUM 139 mmol/L (136-145); TOT PROT 6.7 g/dl (6.4-8.2)
[2018-10-15] MEDS ORDERED: PROPOFOL 20 ML ONE ×2 (09:49)
[2018-10-15] MEDS ORDERED: SUCCINYLCHOLINE CHLORIDE 200 MG/10 ML VIAL ONE (09:49)
[2018-10-15] MEDS ORDERED: MIDAZOLAM HCL 2 MG/2 ML SINGLE DOSE VIAL ONE (09:49)
[2018-10-15] MEDS ORDERED: ROCURONIUM BROMIDE 50 MG/5 ML VIAL ONE (09:49)
[2018-10-15] MEDS ORDERED: BUPIVACAINE HCL/PF 0.25% (2.5MG/ML) 10 ML VIAL IJ ONE ×2 (10:26)
[2018-10-15] MEDS ORDERED: oxyCODONE HCL 5 MG TABLET PO PRN ×2 (10:29→11:24)
[2018-10-15] MEDS ORDERED: ONDANSETRON 4 MG/2 ML VIAL IVPUSH PRN ×2 (10:29→11:24)
[2018-10-15] MEDS ORDERED: LACTATED RINGERS SOLUTION 1,000 ML IV SCH (10:30)
[2018-10-15] MEDS ORDERED: NEOSTIGMINE METHYLSULFATE 0.5 MG/1 ML - 10 ML MDV ONE (10:44)
--- NOTE | 2018-10-15 11:05 | OP ---
Operative Note - Note: Operative Date: 10/15/18 Pre-Operative Diagnosis: acute appendicittis Operation: laparoscopic appendectomy Findings: acute appencittis Post-Operative Diagnosis: Same as Pre-op Surgeon: Owen Woods Anesthesiologist/WEIGHT LOSS PHYSICIAN: Ilan Trivedi Anesthesia: General Specimens Removed: appendix Estimated Blood Loss (mls): 10 Operative Report Dictated: Yes
[2018-10-15] MEDS ORDERED: HYDROmorphone HCl 2 MG/ML VIAL IVPB PRN (11:10)
[2018-10-15] MEDS ORDERED: ACETAMINOPHEN INJECTION 100 ML IVPB ONE (11:27)
[2018-10-15] MEDS ORDERED: ACETAMINOPHEN 1000 MG/100 ML VIAL (NON FORMULARY) IVPB ONE (11:30)
[2018-10-15] MEDS: LACTATED RINGERS SOLUTION 1,000 ML IV SCH ×2 (12:30→21:00)
[2018-10-15] MEDS ORDERED: PIPERACILLIN/TAZOB 3.375 GM 3.375 GM in DEXTROSE 5%-WATER - 50 ML IVPB ONE (14:00)
--- NOTE | 2018-10-15 14:04 | OP ---
DATE OF OPERATION: 10/15/2018 PREOPERATIVE DIAGNOSIS: Acute appendicitis. POSTOPERATIVE DIAGNOSIS: Acute appendicitis. PROCEDURE: Laparoscopic appendectomy. SURGEON: Owen Moreira MD DOBBY LOOM CHAIN PEGGER: SHERRELL Archibald COMPLICATIONS: None. BLEEDING: Minimal. SPECIMEN: Appendix. DISPOSITION: Patient tolerated the procedure well. FINDINGS: Retrocecal appendix with acute inflammation. This is a 43-year-old male, presents with a 2-day history of abdominal pain that got worse last night. He presented to the emergency room and evaluation with CT scan showed evidence of acute appendicitis, for which he was referred for surgical evaluation. He is taken to the operating room for this procedure. Risks and benefits were discussed. IV antibiotics were administered in the operating room. The patient was placed in supine position. After induction of general anesthesia, he was prepped and draped in the usual sterile fashion. The operation was begun with a paraumbilical incision from a scalpel and continued through subcutaneous tissue. The fascia was incised open over a longitudinal incision. The peritoneal cavity was entered with a center-center approach, and a 12-mm port introduced at this point. Insufflation was then established to a pressure of 15 mmHg. Next, under direct vision, two 5-mm ports were introduced, one in the left lower quadrant and one in the suprapubic position. Care was taken to avoid injury to any organs or adjacent structures. The appendix was identified. It appeared to be in the retrocecal position and required mobilization of the cecum, which was performed with the LigaSure to liberate the white line of Toldt and expose the appendix. With the appendix in full view, then the mesoappendix was divided using the LigaSure and skeletonized to its base and then the appendiceal base was divided with an Endo TRINA purple stapler. There was 1 spot where bleeding was noted in the mesoappendix, and this was then controlled with 3 Ligamax clips that were applied. The peritoneal cavity was then irrigated and suctioned appropriately and the appendix was placed in the EndoCatch bag. The ports were removed under direct vision. The appendix was removed through the umbilical port. The fascia at the umbilical port was closed with 0 Vicryl sutures. The skin was closed with 4-0 Monocryl. Dermabond was applied to all port sites and the patient was then returned to the recovery room, awake and alert, in stable condition. He tolerated the procedure well. OWEN MOREIRA M.D. [id number]
--- NOTE | 2018-10-15 16:56 | PN ---
Teaching Attending Note Name of Resident: Alonso Freeman ATTENDING PHYSICIAN STATEMENT I saw and evaluated the patient. I reviewed the resident's note and discussed the case with the resident. I agree with the resident's findings and plan as documented. SUBJECTIVE: seen after sx. has minimal pain in RLQ. No N/V. OBJECTIVE: NAD Cv : RRR Lungs: CTAB ext : no edema Abd: soft, ND, no BS, TTP in RLQ, LUQ, adn suprapubic area. No revound tenderness ASSESSMENT AND PLAN: 43 y/o man with h/o cholelithiasis who presented with R sided abd pain and was found ot have acute appendicitis 1- Acute appendicitis s/p appendectomy: doing well. No abscess or perforation - cont with current diet - ambulation - pain control - No need for Abx 2- R renal cyst: f/u as out pt 3- Gall bladder polyp: f/u as out pt 4- LDL of 127: 10 yr risk for CAD per [place] risk score is 2%. No need fro statin treatment dispo : marcy tomorrow
--- NOTE | 2018-10-15 18:36 | PN ---
Physical Exam: SUBJECTIVE: Patient seen and examined at bedside this morning. No acute events overnight. Patient underwent lap appendectomy today. Tolerated procedure well. OBJECTIVE: Vital Signs Period Temp Pulse Resp BP Sys/Abreu Pulse Ox Last 24 Hr 97.6 F-98.6 F 51-83 14-20 104-141/58-80 95-99 GENERAL: The patient is awake, alert, and fully oriented, in no acute distress. HEAD: Normal with no signs of trauma. EYES: PERRLA, EOMI, sclera anicteric, conjunctiva clear. No ptosis. NECK: Trachea midline, full range of motion, supple. LUNGS: Breath sounds equal, clear to auscultation bilaterally. HEART: Regular rate and rhythm, S1, S2 without murmur, rub or gallop. ABDOMEN: Soft, +RLQ tenderness, nondistended, normoactive bowel sounds, no guarding, no rebound. EXTREMITIES: 2+ pulses, warm, well-perfused, no edema. SKIN: Warm, dry, normal turgor, no rashes or lesions noted Laboratory Results - last 24 hr 10/14/18 10/14/18 10/14/18 18:08 18:08 18:08 WBC 10.7 H RBC 4.55 Hgb 15.7 Hct 45.2 MCV 99.3 H MCH 34.5 H MCHC 34.7 RDW 12.6 Plt Count 265 MPV 8.4 Absolute Neuts (auto) 6.6 Neutrophils % 62.0 Lymphocytes % 29.8 D Monocytes % 6.2 Eosinophils % 1.4 D Basophils % 0.6 Nucleated RBC % 0 PT with INR 12.20 INR 1.03 Sodium 138 Potassium 4.1 Chloride 101 Carbon Dioxide 30 Anion Gap 7 L BUN 11 Creatinine 0.9 Creat Clearance w eGFR > 60 Random Glucose 83 Calcium 9.1 Phosphorus Magnesium Total Bilirubin 0.7 AST 31 ALT 36 Alkaline Phosphatase 66 Total Protein 7.7 Albumin 4.3 Triglycerides Cholesterol Total LDL Cholesterol HDL Cholesterol Urine Color Urine Appearance Urine pH Ur Specific [place] Urine Protein Urine Glucose (UA) Urine Ketones Urine Blood Urine Nitrite Urine Bilirubin Urine Urobilinogen Ur Leukocyte Esterase Blood Type Antibody Screen 10/14/18 10/14/18 10/14/18 18:08 18:16 22:30 WBC RBC Hgb Hct MCV MCH MCHC RDW Plt Count MPV Absolute Neuts (auto) Neutrophils % Lymphocytes % Monocytes % Eosinophils % Basophils % Nucleated RBC % PT with INR INR Sodium Potassium Chloride Carbon Dioxide Anion Gap BUN Creatinine Creat Clearance w eGFR Random Glucose Calcium Phosphorus Magnesium Total Bilirubin AST ALT Alkaline Phosphatase Total Protein Albumin Triglycerides Cholesterol Total LDL Cholesterol HDL Cholesterol Urine Color Straw Urine Appearance Clear Urine pH 8.0 Ur Specific [place] 1.011 Urine Protein Negative Urine Glucose (UA) Negative Urine Ketones Negative Urine Blood Negative Urine Nitrite Negative Urine Bilirubin Negative Urine Urobilinogen Negative Ur Leukocyte Esterase Negative Blood Type O NEGATIVE O NEGATIVE Antibody Screen Negative 10/15/18 10/15/18 10/15/18 02:50 06:30 06:30 WBC 7.8 RBC 4.13 Hgb 14.4 Hct 40.1 MCV 97.1 H MCH 34.8 H MCHC 35.9 RDW 12.4 Plt Count 253 MPV 8.5 Absolute Neuts (auto) 4.7 Neutrophils % 60.0 Lymphocytes % 29.8 Monocytes % 8.1 Eosinophils % 1.6 Basophils % 0.5 Nucleated RBC % 0 PT with INR INR Sodium 139 Potassium 4.0 Chloride 106 Carbon Dioxide 27 Anion Gap 7 L BUN 9 Creatinine 0.9 Creat Clearance w eGFR > 60 Random Glucose 80 Calcium 8.4 L Phosphorus 3.3 Magnesium 2.0 Total Bilirubin 1.0 AST 22 ALT 28 Alkaline Phosphatase 52 Total Protein 6.7 Albumin 3.5 Triglycerides 67 Cholesterol 196 Total LDL Cholesterol 127 H HDL Cholesterol 47 Urine Color Urine Appearance Urine pH Ur Specific [place] Urine Protein Urine Glucose (UA) Urine Ketones Urine Blood Urine Nitrite Urine Bilirubin Urine Urobilinogen Ur Leukocyte Esterase Blood Type Antibody Screen Active Medications Generic Name Dose Route Start Last Admin Trade Name Becki PRN Reason Stop Dose Admin Acetaminophen 650 mg 10/15/18 11:24 Tylenol - PO Q4H PRN PAIN LEVEL 6-10 Fentanyl 50 mcg 10/15/18 14:36 Sublimaze Injection - IVPUSH Q5M PRN PAIN-PACU ORDER X 4 DOSES ONLY Hydromorphone HCl 1 mg 10/15/18 11:10 Dilaudid Vial - IVPB Q6H PRN PAIN LEVEL 6-10 Lactated Ringer's 1,000 mls @ 125 mls/hr 10/15/18 11:24 10/15/18 12:30 Lactated Ringers Solution IV 0 mls ASDIR RAMY Administration Piperacillin Sod/Tazobactam 50 mls @ 100 mls/hr 10/15/18 18:00 Sod 3.375 gm/ Dextrose IVPB Q8H-IV RAMY Ondansetron HCl 4 mg 10/15/18 11:24 Zofran Injection IVPUSH 10/16/18 10:28 Q6H PRN NAUSEA AND/OR VOMITING Oxycodone HCl 5 mg 10/15/18 11:24 Roxicodone - PO 10/16/18 10:28 Q4H PRN PAIN LEVEL 1-5 ASSESSMENT/PLAN: Patient is a 43 year old male with past medical history of internal hemorrhoids , R kidney cyst, HLD, presented with RLQ pain for 2 days. #RLQ likely 2/2 Acute appendicitis -CT AP: Acute appendicitis is identified without associated abscess or phelgmon. 7.9cm right renal cortical cyst. Colonic fecal retention which is probably moderate -POD 0: Lap appendectomy -Surgery (Dr. Woods) consulted. Recommendations appreciated. -Pain control -Continue Zosyn -Clear diet, advance as tolerated. -IV hydration #Hyperlipidemia -Lipid panel wnl -Continue with diet and exercise #Hx of right renal cortical cyst -Right renal cortical cyst on CT scan -To follow-up as outpatient #FEN -IV LR @125cc/hr -Electrolytes wnl, routine bmp monitoring -Clear liquid diet, advance as per surgery #Prophylaxis -Early ambulation #Disposition -full code -med surg -for possible discharge tomorrow Visit type - Emergency Visit Emergency Visit: Yes ED Registration Date: 10/14/18 Care time: The patient presented to the Emergency Department on the above date and was hospitalized for further evaluation of their emergent condition. - New Patient This patient is new to me today: Yes Date on this admission: 10/15/18 - Critical Care Critical Care patient: No
--- NOTE | 2018-10-15 20:54 | SURG ---
Surgery Automated Teller Manager Note Automated Teller Manager: Ilan Trivedi PA-C Date of Service: 10/15/18 Diagnosis: Acute Appendicitis Procedure: Laprascopic Appendectomy I was present for the entirety of the operative procedure. For further detail, please refer to operative report. Visit type - Case Type Case Type: ED Admission - Emergency Emergency Visit: Yes ED Registration Date: 10/14/18 Care time: The patient presented to the Emergency Department on the above date and was hospitalized for further evaluation of their emergent condition. - New patient This patient is new to me today: Yes Date on this admission: 10/15/18
[2018-10-16] MEDS: LACTATED RINGERS SOLUTION 1,000 ML IV SCH (05:00)
--- NOTE | 2018-10-16 08:13 | PN ---
Progress Note (short form) - Note Progress Note: 43yo M s/p lap appy POD 1. Pt seen and examined at bedside. Pt states that he tolerated his clears and urinating well. Pt denies n/v, fever, chills. Last Vital Signs Temp Pulse Resp BP Pulse Ox 98.4 F 62 18 113/59 L 95 10/16/18 05:52 10/16/18 05:52 10/16/18 05:52 10/16/18 05:52 10/15/18 21:00 CBC, BMP 10/15/18 06:30 10/15/18 06:30 PE: Gen: A&O x3 Resp: breathing comfortably Abd: soft, nontender, nondistended, incisions clean w/ no erythema or discharge. Ext: no edema Problem List - Problems (1) Appendicitis, acute Assessment/Plan: Plan -pt appears to be doing well, adv to regular diet -OOB/ambulate -pt may be discharged later today if continues to do well. Code(s): K35.80 - UNSPECIFIED ACUTE APPENDICITIS
[2018-10-16 09:07] VITALS: BP 116/63; PULSE 72; TEMP 98.5
[2018-10-16 09:40] LABS: ANION GAP 6 MMOL/L (8-16); BLOOD UREA NITROGEN 8 mg/dL (7-18); CALCIUM 8.6 mg/dL (8.5-10.1); CHLORIDE 106 mmol/L (98-107); CO2 29 mmol/L (21-32); CREATININE 0.8 mg/dL (0.55-1.3); GLUCOSE,RANDOM 76 mg/dL (74-106); MAGNESIUM 2.1 mg/dL (1.8-2.4); SODIUM 140 mmol/L (136-145)
--- NOTE | 2018-10-16 16:11 | DS ---
Physical Exam: SUBJECTIVE: Patient seen and examined at bedside this morning. No acute events overnight. Patient is POD1. He is reporting pain on surgical site relieved by pain medications. Had a regular meal this morning which he tolerated well. otherwise, denies fever, chills, headache, chest pain, SOB, diarrhea, urinary symptoms. OBJECTIVE: Vital Signs Temperature 98.5 F 10/16/18 09:00 Pulse Rate 72 10/16/18 09:00 Respiratory Rate 18 10/16/18 09:00 Blood Pressure 116/63 10/16/18 09:00 O2 Sat by Pulse Oximetry (%) 94 L 10/16/18 09:00 PHYSICAL EXAM GENERAL: The patient is awake, alert, and fully oriented, in no acute distress. HEAD: Normal with no signs of trauma. EYES: PERRLA, EOMI, sclera anicteric, conjunctiva clear. No ptosis. NECK: Trachea midline, full range of motion, supple. LUNGS: Breath sounds equal, clear to auscultation bilaterally. HEART: Regular rate and rhythm, S1, S2 without murmur, rub or gallop. ABDOMEN: Soft, +RLQ tenderness, nondistended, normoactive bowel sounds, no guarding, no rebound. EXTREMITIES: 2+ pulses, warm, well-perfused, no edema. SKIN: Warm, dry, normal turgor, no rashes or lesions noted LABS Laboratory Results - last 24 hr 10/16/18 07:45 Sodium 140 Potassium 4.0 Chloride 106 Carbon Dioxide 29 Anion Gap 6 L BUN 8 Creatinine 0.8 Creat Clearance w eGFR > 60 Random Glucose 76 Calcium 8.6 Phosphorus 3.0 Magnesium 2.1 -CT AP: Acute appendicitis is identified without associated abscess or phelgmon. 7.9cm right renal cortical cyst. Colonic fecal retention which is probably moderate HOSPITAL COURSE: Date of Admission:10/14/18 Date of Discharge: 10/16/18 Patient is a 43 year old male with past medical history of internal hemorrhoids , R kidney cyst, HLD, presented with RLQ pain for [address] scan of abdomen and pelvis revealed acute appendicitis. Surgery was consulted and patient underwent laparoscopic appendectomy. Patient tolerated procedure well and remained stable throughout his hospital stay. Patient was discharged with instructions to follow-up with PCP and surgery for post-operative appointment. Minutes to complete discharge: 35 Discharge Summary Reason For Visit: ABDOMINAL PAIN, ACUTE APPENDICITIS Condition: Improved - Instructions Diet, Activity, Other Instructions: Medical Discharge Instructions Your visit You were admitted to the hospital because you had abdominal pain. You had appendicitis. You were seen by surgery and you had your appendix removed. You were also noted to have a cyst on your right kidney. These are most often benign. Please follow up with your primary care doctor for further evaluation and repeat imaging of the cyst you also have a gall bladder polyp , you need to follow that with your surgeon Dr. jones for repat imaging Medications You may take Tylenol 500mg every 6 hours as needed for pain. Follow-up -Please follow-up with your primary care physician (Dr. Ontiveros) within 1 week. -Follow-up with surgery (Dr. Woods) within 7-10 days. Please call the office to schedule an appointment. Dr. Woods's Post-Operative Discharge Instructions Physical activity Resume your normal everyday activity as tolerated no heavy lifting or exercise until seen by your surgeon. You may walk unlimited amounts and climb stairs. You may resume driving the car when you feel safe and comfortable behind the wheel. Wound care You may remove your bandaids after 24 hours. The purple hue over each surgical incision is Dermabond. It will fall off on it's own in about 10-12 days. DO NOT PICK AT IT! You may shower 2 days after surgery. Diet There are no dietary restrictions. Eat healthy, high-fiber foods. Drink 6 to 8 glasses of liquid each day. This will assist in keeping your bowels are regular. Pain management You may take Tylenol or acetaminophen or Ibuprofen (for example, Motrin, Advil etc.) Any pain prescription medication ordered should be taken as prescribed for moderate to severe pain. Call Dr. Woods for any of the following: Severe pain not relieved by medication Fever of 101 or higher Excessive bleeding or drainage on dressing Inability to urinate Call the office for a post operative appointment in 7 - 10 days. Referrals: Jazlyn Ontiveros MD [Primary Care Provider] - 1 Week Owen Woods [Staff Physician] - 1 Week Disposition: HOME - Home Medications Comprehensive Discharge Medication List: Ambulatory Orders Acetaminophen [Tylenol -] 500 mg PO Q6H PRN #15 tablet 10/16/18 This patient is new to me today: No Emergency Visit: Yes ED Registration Date: 10/14/18 Care time: The patient presented to the Emergency Department on the above date and was hospitalized for further evaluation of their emergent condition. Critical Care patient: No - Discharge Referral Referred to [facility] No
--- NOTE | 2018-10-16 17:08 | PATH ---
Surgical Pathology Report Patient Name: WANDA ZHANG [facility]. Rec. #: [id number] /Age/Gender: 1975 (Age: 43) / M Account: [id number] Location: [address] [place] [address]/[facility] Taken: 10/15/2018 Received: 10/15/2018 Reported: 10/16/2018 Physicians: Karson Frederick M.D. Specimen(s) Received APPENDIX Clinical History Laparoscopic appendectomy Final Diagnosis APPENDIX, LAPAROSCOPIC APPENDECTOMY: ACUTE APPENDICITIS AND PERIAPPENDICITIS. Electronically Signed Izabella Campos M.D. Gross Description Received in formalin, labeled "appendix," is a 7 cm. in length vermiform appendix with a stapled margin of resection and moderate attached fat. The serosa is cloud-vasquez with adhesions. Sectioning reveals an unremarkable lumen. The wall of the appendix averages 0.1 cm. in thickness. Package Designer sections are submitted in one cassette. /10/15/2018 [facility]10/15/2018
== END 2018-10-16 11:22 | disposition home or self-care (01) | DRG 343 ==
LOC: JER 17:30 → J5S 22:57
PROVIDERS: ADMIT Internal Medicine; ATTEND Internal Medicine
PROC: 0DTJ4ZZ Resection of Appendix, Percutaneous Endoscopic Approach (ICD-10-PCS; principal; 2018-10-15 11:30)
DX: K35.80 Unspecified acute appendicitis (principal); K82.4 Cholesterolosis of gallbladder; N28.1 Cyst of kidney, acquired; E78.5 Hyperlipidemia, unspecified; K59.00 Constipation, unspecified
CPT/HCPCS: 36415; 74177-TC; 76705-TC; 80048; 80053; 80061; 81003; 83721; 83735; 84100; 85025; 85610; 86850; 86900; 86901; 87086; 88304-TC; 94760; 99283-25; J0131; J7030

== ENCOUNTER 2018-12-30 06:30 | Emergency (ER) | payer BC, OTHER ==
[2018-12-30 06:59] VITALS: TEMP 98.1; BMI 26.1
[2018-12-30] MEDS ORDERED: SODIUM CHLORIDE 0.9% 1000 ML INFUS.BAG IV ONE (07:34)
[2018-12-30] MEDS ORDERED: FAMOTIDINE 20 MG/50 ML IVPB 20 MG/50 ML MG IVPB ONE ×2 (07:34→08:05)
--- NOTE | 2018-12-30 07:41 | PDOC ---
History of Present Illness - General Chief Complaint: Pain Stated Complaint: ABD PAIN Time Seen by Provider: 12/30/18 07:20 History Source: Patient Exam Limitations: No Limitations - History of Present Illness Initial Comments: 12/30/18 07:42 43M with PMH of gallstones, kidney cyst, and internal hemorrhoids who presents to the ER with complaints of 1 day of diffuse abdominal cramping and diarrhea. Pt states that he had gradual onset of diffuse abdominal cramping, nonradiating , atraumatic associated with "multiple" bouts of diarrhea. Pt denies nausea, vomiting, CP, SOB, fever, chills. He denies sick contacts and denies anyone else having similar symptoms around him. He denies dysuria, discharge, and testicular pain. Past History - Past Medical History Allergies/Adverse Reactions: Allergies Allergy/AdvReac Type Severity Reaction Status Date / Time No Known Allergies Allergy Verified 12/30/18 07:00 Home Medications: Ambulatory Orders Ciprofloxacin [Cipro (Restricted To Id)] 500 mg PO Q12H #14 tablet 12/30/18 Metronidazole 500 mg PO TID #21 tablet 12/30/18 COPD: No GI Disorders: Yes (GALLSTONES) Disorders: Yes (renal stones) - Immunization History Immunization Up to Date: Yes - Suicide/Smoking/Psychosocial Hx Smoking Status: No Smoking History: Never smoked Have you smoked in the past 12 months: No Number of Cigarettes Smoked Daily: 0 Information on smoking cessation initiated: No Hx Alcohol Use: No Drug/Substance Use Hx: No Substance Use Type: None Review of Systems - Review of Systems Able to Perform ROS?: Yes Comments:: 12/30/18 07:46 GENERAL/CONSTITUTIONAL: No fever or chills. No weakness. HEAD, EYES, EARS, NOSE AND THROAT: No change in vision. No ear pain or discharge. No sore throat. CARDIOVASCULAR: No chest pain, palpitations, or lightheadedness. RESPIRATORY: No cough, wheezing, shortness of breath, or hemoptysis. GASTROINTESTINAL: + for abdominal pain and diarrhea. No nausea, vomiting, or constipation. GENITOURINARY: No dysuria, frequency, hematuria, or change in urination. MUSCULOSKELETAL: No joint or muscle swelling or pain. No neck or back pain. SKIN: No rash or lesions. NEUROLOGIC: No headache, numbness, tingling, focal weakness, loss of consciousness, or change in strength/sensation. Is the patient limited German proficient: No *Physical Exam - Vital Signs Last Vital Signs Temp Pulse Resp BP Pulse Ox 98.1 F 75 19 140/88 99 12/30/18 06:30 12/30/18 06:30 12/30/18 06:30 12/30/18 06:30 12/30/18 06:30 - Physical Exam Comments: 12/30/18 07:47 GENERAL: Well developed, well nourished. Awake and alert. No acute distress. HEENT: Normocephalic, atraumatic. Hearing grossly normal. Moist mucous membranes. PERRLA, EOMI. No conjunctival pallor. Sclera are non-icteric. NECK: Supple. Full ROM. No JVD. CARDIOVASCULAR: Regular rate and rhythm. No murmurs, rubs, or gallops. PULMONARY: No evidence of respiratory distress. Lungs clear to auscultation bilaterally. No wheezing, rales or rhonchi. ABDOMINAL: Soft. TTP in RUQ. +James's sign. Non-distended. No rebound or guarding. GENITOURINARY: No CVA tenderness bilaterally. MUSCULOSKELETAL: Normal range of motion at all joints. No bony deformities or tenderness. EXTREMITIES: No cyanosis. No clubbing. No edema. No calf tenderness or swelling. SKIN: Warm and dry. Normal capillary refill. No rashes. No jaundice. NEUROLOGICAL: Alert, awake, appropriate. Cranial nerves 2-12 grossly intact. Normal speech. Gait is normal without ataxia. PSYCHIATRIC: Cooperative. Good eye contact. Appropriate mood and affect. ED Treatment Course - LABORATORY CBC & Chemistry Diagram: 12/30/18 07:55 12/30/18 07:55 - RADIOLOGY Radiology Studies Ordered: Category Date Time Status ABDOMEN US -LIMITED [US] Stat Ultrasound 12/30/18 07:33 Ordered Medical Decision Making - Medical Decision Making 12/30/18 07:47 43M with PMH of gallstones, kidney cyst, and internal hemorrhoids who presents to the ER with RUQ colicky pain concerning for cholecystitis, PUD, gastritis, pancreatitis. Pending labs and imaging. Giving symptomatic treatment and made pt NPO. 12/30/18 10:58 CTAP shows diffuse colitis. Will give cipro/flagyl in ED and for outpt use. I have instructed pt on PCP f/u in 1-2 days. Pt agrees and is ready for d/c. No longer tender on exam. *DC/Admit/Observation/Transfer Diagnosis at time of Disposition: Colitis - Discharge Dispostion Disposition: HOME Condition at time of disposition: Fair Decision to Admit order: No - Prescriptions Prescriptions: Ciprofloxacin [Cipro (Restricted To Id)] 500 mg PO Q12H #14 tablet Metronidazole 500 mg PO TID #21 tablet - Referrals Referrals: Jazlyn Ontiveros MD [Primary Care Provider] - - Patient Instructions Printed Discharge Instructions: DI for Colitis Additional Instructions: Your ER visit is not complete until your follow up with your primary care physician. Please follow up with your primary care physician in 1-2 days. Please return to the ER if you have any signs or symptoms of chest pain, shortness of breath, uncontrollable fever, chills, nausea, vomiting, numbness, tingling, or weakness in any part of your body, changes in vision, or slurred speech. Please take your medications as prescribed. Please return to the ER if symptoms persist, worsen, or new symptoms arise. - Post Discharge Activity
[2018-12-30 08:24] LABS: BASO % 0.2 % (0-2.0); EOS % 0.5 % (0-4.5); HEMATOCRIT 46.4 % (35.4-49); HEMOGLOBIN 15.5 GM/dL (11.7-16.9); LYMPH % 11.8 % (8-40); MCH 33.1 pg (25.7-33.7); MCHC 33.4 g/dl (32.0-35.9); MEAN CELL VOLUME 99.1 fl (80-96); MEAN PLT VOLUME 8.7 fl (7.5-11.1); MONO % 5.4 % (3.8-10.2); NEUT % 82.1 % (42.8-82.8); PLATELET COUNT 288 K/MM3 (134-434); RBC 4.68 M/mm3 (4.00-5.60); RDW 12.7 % (11.9-15.9); WHITE BLOOD COUNT 12.6 K/mm3 (4.0-10.0)
[2018-12-30 08:36] LABS: ALBUMIN 3.9 g/dl (3.4-5.0); ALK PHOS 62 U/L (45-117); ANION GAP 5 MMOL/L (8-16); BILIRUBIN,DIRECT 0.2 mg/dL (0.0-0.2); BILIRUBIN,TOTAL 0.9 mg/dL (0.2-1); BLOOD UREA NITROGEN 14 mg/dL (7-18); CALCIUM 9.4 mg/dL (8.5-10.1); CHLORIDE 103 mmol/L (98-107); CO2 28 mmol/L (21-32); CREATININE 0.9 mg/dL (0.55-1.3); GLUCOSE,RANDOM 97 mg/dL (74-106); LIPASE 112 U/L (73-393); POTASSIUM 4.2 mmol/L (3.5-5.1); SGOT/AST 32 U/L (15-37); SGPT/ALT 49 U/L (13-61); SODIUM 136 mmol/L (136-145); TOT PROT 7.5 g/dl (6.4-8.2)
[2018-12-30 08:39] LABS: INR 1.03 (0.83-1.09); PROTHROMBIN TIME (PATIENT) 12.1 SEC (9.7-13.0)
--- NOTE | 2018-12-30 09:21 | PDOC ---
Attending Attestation - Resident Resident Name: Maik Vuong - ED Attending Attestation I have performed the following: I have examined & evaluated the patient, The case was reviewed & discussed with the resident, I agree w/resident's findings & plan - HPI HPI: 12/30/18 09:15 43-year-old male with history of renal cysts, recent laparoscopic appendectomy in October presents with generalized abdominal pain and diarrhea. Patient has history of renal cysts that are evaluated regularly with routine ultrasound, occasionally gets right flank/right upper quadrant discomfort that comes and goes on its own. This same pain has been slightly more frequent over the last week, and had an notable episode 2 days ago that resolved after about half of the day. Presents today because of relatively acute onset of diffuse abdominal/ periumbilical pain that began after dinner last night, associated with loose nonbloody stool but no nausea/vomiting/fever/chills. - Physicial Exam PE: 12/30/18 09:17 Afebrile, vital signs normal Well-appearing, no jaundice or pallor Moist mucosa Heart is regular, lungs are clear Abdomen is soft/nondistended. Tender in the right midabdomen/right upper quadrant/epigastric region, no guarding or rebound. Mild right CVA tenderness, no left CVA tenderness. No hernias, healed laparoscopic incisional scars. - Medical Decision Making 12/30/18 09:18 43-year-old male recent laparoscopic appendectomy presents with acute onset of diffuse abdominal pain that began last night, associated with some loose stool. Well-appearing here with some tenderness in the right midabdomen, no peritoneal findings. Presentation could be consistent with colitis/enteritis, rule out biliary etiology or renal etiology, less clinically consistent with obstruction despite the recent surgery. Check labs, urinalysis Start with right upper quadrant ultrasound, though previous imaging in October showed no gallstones, only gallbladder polyp. Consider CAT scan of the abdomen and pelvis given recent surgical intervention. IV fluids, pain control Reassess 12/30/18 10:47 wbc 12, remaining labs wnl. ctap confirms diffuse colitis without perf/abscess, otherwise normal. well appearing without peritoneal findings, will d/c on abx and prompt f/u. understands return criteria. Heart Score/ECG Review #1 ECG reviewed & interpreted by me at: 07:58 General ECG Interpretation: Sinus Rhythm, Normal Rate (74), Normal Intervals ( qtc 421), No acute ischemic changes (biphasic T V3)
[2018-12-30] MEDS ORDERED: CIPROFLOXACIN 500 MG TABLET (RESTRICTED TO ID) PO ONE (10:46)
[2018-12-30] MEDS ORDERED: metroNIDAZOLE 250 MG TABLET PO ONE (10:47)
[2018-12-30] MEDS ORDERED: metroNIDAZOLE 250 MG TABLET ONE (11:17)
[2018-12-30 11:32] VITALS: BP 144/71; PULSE 78
--- NOTE | 2018-12-30 12:26 | EKG ---
Test Reason : Blood Pressure : / mmHG Vent. Rate : 074 BPM Atrial Rate : 074 BPM P-R Int : 164 ms QRS Dur : 098 ms QT Int : 380 ms P-R-T Axes : 058 -17 000 degrees QTc Int : 421 ms POOR DATA QUALITY, INTERPRETATION MAY BE ADVERSELY AFFECTED NORMAL SINUS RHYTHM NONSPECIFIC T WAVE ABNORMALITY ABNORMAL ECG Confirmed by MD YAQUELIN, HANNAH ([id number]) on 12/30/2018 12:25:48 PM Referred By: Confirmed By:HANNAH JAMISON MD
== END 2018-12-30 11:31 | disposition home or self-care (01) ==
LOC: JER 06:30
PROC: 3E033GC Introduction of Other Therapeutic Substance into Peripheral Vein, Percutaneous Approach (ICD-10-PCS; principal; 2018-12-30)
DX: K52.9 Noninfective gastroenteritis and colitis, unspecified (principal); Z87.19 Personal history of other diseases of the digestive system; Z87.442 Personal history of urinary calculi
CPT/HCPCS: 36415; 74177-TC; 76705-TC; 80053; 82248; 83690; 85025; 85610; 86850; 86900; 86901; 93005; 93010; 99282-25; J7030

== ENCOUNTER 2022-04-20 17:28 | Emergency (ER) | payer BC, OTHER ==
[2022-04-20 18:03] VITALS: BP 130/72; PULSE 85; RESP 18; TEMP 98.8; BMI 24.2
[2022-04-20] MEDS ORDERED: DIPHTH,PERTUSS(ACELL),TET 0.5 ML DISP.SYRIN IM ONE ×2 (18:55→18:56)
== END 2022-04-20 19:13 | disposition home or self-care (01) ==
LOC: JER 17:28
PROC: 0VQSXZZ Repair Penis, External Approach (ICD-10-PCS; principal; 2022-04-20)
PROC: 3E0234Z Introduction of Serum, Toxoid and Vaccine into Muscle, Percutaneous Approach (ICD-10-PCS; 2022-04-20)
DX: S31.21XA Laceration without foreign body of penis, initial encounter (principal); W29.8XXA Contact with other powered hand tools and household machinery, initial encounter; Y93.H3 Activity, building and construction
CPT/HCPCS: 82962; 90715; 99284-25

== ENCOUNTER 2022-04-28 00:25 | Emergency (ER) | payer OTHER ==
[2022-04-28 01:34] VITALS: BP 130/72; PULSE 82; RESP 20; TEMP 98.6; BMI 24.2
== END 2022-04-28 02:01 | disposition home or self-care (01) ==
LOC: JER 00:25
DX: Z48.00 Encounter for change or removal of nonsurgical wound dressing (principal)
CPT/HCPCS: 99281-25

== ENCOUNTER 2022-09-03 17:00 | Emergency (ER) | payer OTHER ==
[2022-09-03 17:42] VITALS: BP 133/84; PULSE 95; RESP 16; TEMP 97.8; BMI 25.8
[2022-09-03] MEDS ORDERED: SODIUM CHLORIDE 1,000 ML IV STA (17:49)
[2022-09-03] MEDS ORDERED: DIPHTH,PERTUSS(ACELL),TET 0.5 ML DISP.SYRIN IM ONE ×2 (18:03→18:21)
[2022-09-03] MEDS ORDERED: ACETAMINOPHEN INJECTION 100 ML IVPB ONE (18:20)
[2022-09-03] MEDS ORDERED: ACETAMINOPHEN 1000 MG/100 ML BAG IVPB ONE (18:20)
[2022-09-03 18:36] LABS: INR 1.21 (0.83-1.09); PROTHROMBIN TIME (PATIENT) 13.9 SEC (9.7-13.0)
[2022-09-03 18:38] LABS: ACTIVATED PTT 31.7 SECONDS (25.2-36.5); BASO % 0.5 % (0-2.0); EOS % 0.1 % (0-4.5); HEMATOCRIT 52.3 % (35.4-49); HEMOGLOBIN 17.2 GM/dL (11.7-16.9); LYMPH % 5.3 % (8-40); MCHC 32.9 g/dl (32.0-35.9); MEAN CELL VOLUME 100.3 fl (80-96); MONO % 7.2 % (3.8-10.2); NEUT % 86.9 % (42.8-82.8); PLATELET COUNT 258 10^3/uL (134-434); RBC 5.21 M/mm3 (4.00-5.60); RDW 13.1 % (11.9-15.9)
[2022-09-03 18:52] LABS: CALCIUM 9.4 mg/dL (8.5-10.1)
[2022-09-03 18:53] LABS: ALBUMIN 4.2 g/dl (3.4-5.0); BLOOD UREA NITROGEN 12.2 mg/dL (7-18)
[2022-09-03 18:55] LABS: CREATININE 1.1 mg/dL (0.55-1.3)
[2022-09-03 18:58] LABS: TOT PROT 8.2 g/dl (6.4-8.2)
[2022-09-03] MEDS ORDERED: PENICILLIN G BENZATHINE 1,200,000 UNIT/2 ML PFS IM ONE ×2 (21:13→21:43)
== END 2022-09-03 22:23 | disposition home or self-care (01) ==
LOC: JER 17:00
PROC: 3E0333Z Introduction of Anti-inflammatory into Peripheral Vein, Percutaneous Approach (ICD-10-PCS; principal; 2022-09-03)
PROC: 3E0234Z Introduction of Serum, Toxoid and Vaccine into Muscle, Percutaneous Approach (ICD-10-PCS; 2022-09-03)
PROC: 3E02329 Introduction of Other Anti-infective into Muscle, Percutaneous Approach (ICD-10-PCS; 2022-09-03)
PROC: 3E0337Z Introduction of Electrolytic and Water Balance Substance into Peripheral Vein, Percutaneous Approach (ICD-10-PCS; 2022-09-03)
DX: S01.81XA Laceration without foreign body of other part of head, initial encounter (principal); R55 Syncope and collapse; W22.09XA Striking against other stationary object, initial encounter
CPT/HCPCS: 36415; 70450-TC; 80053; 82962; 85025; 85610; 85730; 90471; 90715; 93005; 93010; 99284-25

== ENCOUNTER 2022-09-04 07:05 | Emergency (ER) | payer OTHER ==
[2022-09-04 07:27] VITALS: BP 124/83; PULSE 63; RESP 18; TEMP 99; BMI 24.2
== END 2022-09-04 09:30 | disposition home or self-care (01) ==
LOC: JER 07:05
DX: R55 Syncope and collapse (principal)
CPT/HCPCS: 36415; 71046-TC-FY; 84484; 93005; 93010; 99285-25

== ENCOUNTER 2023-04-09 08:50 | Day surgery (SDC) | payer OTHER ==
[2023-04-03 15:51] VITALS: BMI 24.5
[2023-04-09 08:47] LABS: BASO % 0.6 % (0-2.0); EOS % 4.2 % (0-4.5); HEMATOCRIT 46.7 % (35.4-49); HEMOGLOBIN 16.1 GM/dL (11.7-16.9); LYMPH % 37.2 % (8-40); MCH 35.1 pg (25.7-33.7); MCHC 34.4 g/dl (32.0-35.9); MEAN PLT VOLUME 8.3 fl (7.5-11.1); MONO % 8.7 % (3.8-10.2); NEUT % 49.3 % (42.8-82.8); PLATELET COUNT 278 10^3/uL (134-434); RBC 4.58 M/mm3 (4.00-5.60); RDW 12.9 % (11.9-15.9); WHITE BLOOD COUNT 7.9 K/mm3 (4.0-10.0)
[2023-04-09 08:51] LABS: INR 1.03 (0.83-1.09); PROTHROMBIN TIME (PATIENT) 11.9 SEC (9.7-13.0)
[2023-04-09] MEDS ORDERED: MIDAZOLAM HCL 2 MG/2 ML SINGLE DOSE VIAL ONE (10:32)
[2023-04-09] MEDS ORDERED: FENTANYL CITRATE/PF 50 MCG/ML VIAL ONE (10:33)
[2023-04-09 13:41] VITALS: RESP 18
[2023-04-09 13:45] VITALS: PULSE 60
[2023-04-09 13:48] VITALS: BP 119/73; TEMP 98.4
== END 2023-04-09 12:40 | disposition home or self-care (01) ==
LOC: JRADIR 08:50
PROVIDERS: ATTEND Urology
PROC: 0T903ZX Drainage of Right Kidney, Percutaneous Approach, Diagnostic (ICD-10-PCS; principal; 2023-04-09)
DX: N28.1 Cyst of kidney, acquired (principal)
CPT/HCPCS: 36415; 50390; 74425-TC-FY; 77012-TC; 85025; 85610; 87070; 87075; 87102; 87116; 87205; 87206; 87210; 88108; 88172; 88173; 88305-TC

== ENCOUNTER 2024-06-10 16:40 | Emergency (ER) | payer OTHER ==
[2024-06-10 16:47] VITALS: BP 135/76; PULSE 73; RESP 18; TEMP 97.8; BMI 25.7
[2024-06-10 18:02] LABS: URINE APPEARANCE CLEAR; URINE BILIRUBIN NEGATIVE (NEGATIVE); URINE COLOR YELLOW; URINE GLUCOSE (UA) NEGATIVE (NEGATIVE); URINE KETONE TRACE (NEGATIVE); URINE LEUK ESTERASE NEGATIVE (NEGATIVE); URINE NITRITE NEGATIVE (NEGATIVE); URINE PROTEIN NEGATIVE (NEGATIVE)
[2024-06-10] MEDS ORDERED: ACETAMINOPHEN INJECTION 100 ML ONE (18:32)
[2024-06-10] MEDS: SODIUM CHLORIDE 1,000 ML IV STA (18:46)
[2024-06-10] MEDS: ACETAMINOPHEN 1000 MG/100 ML BAG IVPB ONE (18:46)
[2024-06-10 18:50] LABS: BASO % 0.6 % (0-2.0); EOS % 1.4 % (0-4.5); HEMATOCRIT 43.1 % (35.4-49); HEMOGLOBIN 14.6 GM/dL (11.7-16.9); MCH 33.6 pg (25.7-33.7); MCHC 33.8 g/dl (32.0-35.9); MEAN CELL VOLUME 99.6 fl (80-96); MEAN PLT VOLUME 7.6 fl (7.5-11.1); MONO % 6.9 % (3.8-10.2); NEUT % 56.1 % (42.8-82.8); PLATELET COUNT 303 10^3/uL (134-434); RBC 4.33 M/mm3 (4.00-5.60); RDW 12.4 % (11.9-15.9); WHITE BLOOD COUNT 8.6 K/mm3 (4.0-10.0)
[2024-06-10 18:56] LABS: INR 0.97 (0.83-1.09); PROTHROMBIN TIME (PATIENT) 11.2 SEC (9.7-13.0)
[2024-06-10 18:59] LABS: ACTIVATED PTT 33.5 SECONDS (25.2-36.5)
[2024-06-10 19:07] LABS: POTASSIUM 4.3 mmol/L (3.5-5.1)
[2024-06-10 19:09] LABS: CALCIUM 9.3 mg/dL (8.5-10.1)
[2024-06-10 19:10] LABS: BLOOD UREA NITROGEN 22.7 mg/dL (7-18)
[2024-06-10 19:13] LABS: CREATININE 0.9 mg/dL (0.55-1.3)
[2024-06-10 19:14] LABS: BILIRUBIN,TOTAL 0.6 mg/dL (0.2-1)
[2024-06-10 19:15] LABS: TOT PROT 7.1 g/dl (6.4-8.2)
== END 2024-06-10 19:57 | disposition home or self-care (01) ==
LOC: JER 16:40
PROC: 3E033NZ Introduction of Analgesics, Hypnotics, Sedatives into Peripheral Vein, Percutaneous Approach (ICD-10-PCS; principal; 2024-06-10)
PROC: 3E0337Z Introduction of Electrolytic and Water Balance Substance into Peripheral Vein, Percutaneous Approach (ICD-10-PCS; 2024-06-10)
DX: R10.31 Right lower quadrant pain (principal); R11.0 Nausea
CPT/HCPCS: 36415; 74176-TC; 80053; 81003; 83690; 85025; 85610; 85730; 87086; 93005; 93010; 99285-25; J0131